=== PATIENT | male | born 2000 | race American Indian/Alaskan Native ===

== ENCOUNTER → 2019-07-25 | Outpatient (CLI) | payer OTHER ==
--- NOTE | 2019-07-26 10:13 | REP ---
LEFT FOOT SERIES: FOUR VIEWS. HISTORY: Pain in the left foot. FINDINGS: Four views of the left foot demonstrate normal bones, joints, and soft tissues. No fracture or subluxation is seen. Joint spaces are preserved. Periarticular soft tissues are unremarkable. IMPRESSION: Negative radiographs of the left foot. Electronically Signed by Chinedu Bruno MD 07/26/2019 03:36 P
== END ==
LOC: M RAD 21:06
PROVIDERS: ATTEND Physician Assistant
DX: M79.672 Pain in left foot (principal)

== ENCOUNTER 2019-10-22 05:37 | Emergency (ER) | payer OTHER ==
[~2019-10-22] VITALS: Ht 193 cm; Wt 97.3 kg
[2019-10-22] MEDS ORDERED: blood pressure med (05:59)
[2019-10-22] MEDS ORDERED: NAPR-837 PO (06:57)
[2019-10-22] MEDS ORDERED: BACI500O21 TOP (06:57)
[2019-10-22 07:01] VITALS: BP 118/67
--- NOTE | 2019-10-22 08:21 | REP ---
Left wrist series: Four views. History: Trauma. Findings: Four views of the left wrist demonstrate normal bones, joints, and soft tissues. No fracture or subluxation is seen. Impression: Negative left wrist series. Electronically Signed by Chinedu Bruno MD 10/22/2019 08:13 A
== END 2019-10-22 07:02 | disposition home or self-care (01) ==
LOC: M ED 05:37
DX: S63.502A Unspecified sprain of left wrist, initial encounter (principal); S50.811A Abrasion of right forearm, initial encounter; V48.5XXA Car driver injured in noncollision transport accident in traffic accident, initial encounter; Y92.9 Unspecified place or not applicable; Y93.9 Activity, unspecified; Y99.9 Unspecified external cause status